=== PATIENT | female | born 1965 | race Caucasian/White ===

== ENCOUNTER 2016-04-10 12:33 | Emergency (ER) | payer OTHER ==
--- NOTE | 2016-04-10 12:49 | ED ---
Alcohol HPI - General Stated Complaint: ETOH Time Seen by Provider: 04/10/16 12:35 - History of Present Illness Initial Comments: Patient presents with acute alcohol intoxication. She denies any fever, chills , chest pain or shortness of breath. She has no belly or back pain. She has no nausea or vomiting. She has no constipation or diarrhea. She denies any injuries. She did not fall over. She did not hurt her head. She denies conscious. She has no neck pain or stiffness. She has no weakness or trouble walking. She has no loss of continence. She does admit to drinking today. - Related Data Home Medications Medication Instructions Recorded Confirmed ALPRAZolam [ALPRAZolam] 0.25 mg PO TID PRN 06/08/14 04/10/16 Escitalopram [Lexapro] 10 mg PO DAILY 06/08/14 04/10/16 Allergies Allergy/AdvReac Type Severity Reaction Status Date / Time No Known Allergies Allergy Verified 04/10/16 14:03 Review of Systems ROS Statement: Those systems with pertinent positive or pertinent negative responses have been documented in the HPI. ROS Other: All systems not noted in ROS Statement are negative. Past Medical History Past Medical History: No Reported History Additional Past Medical History / Comment(s): fell & fx. right ulna-arm currently in splint, hx. of head injury years ago, hx. of elevated liver enzymes History of Any Multi-Drug Resistant Organisms: None Reported Past Surgical History: Orthopedic Surgery, Tubal Ligation Additional Past Surgical History / Comment(s): tubes in ears, hand surg. Past Anesthesia/Blood Transfusion Reactions: No Reported Reaction Past Psychological History: Anxiety, Depression Smoking Status: Current every day smoker Past Alcohol Use History: Occasional Additional Past Alcohol Use History / Comment(s): used to drink every day Past Drug Use History: None Reported General Exam General appearance: alert, in no apparent distress Head exam: Present: atraumatic, normocephalic, normal inspection Eye exam: Present: normal appearance, PERRL, EOMI. Absent: scleral icterus, conjunctival injection, periorbital swelling ENT exam: Present: normal exam, mucous membranes moist Neck exam: Present: normal inspection. Absent: tenderness, meningismus, lymphadenopathy Respiratory exam: Present: normal lung sounds bilaterally. Absent: respiratory distress, wheezes, rales, rhonchi, stridor Cardiovascular Exam: Present: regular rate, normal rhythm, normal heart sounds. Absent: systolic murmur, diastolic murmur, rubs, gallop, clicks GI/Abdominal exam: Present: soft, normal bowel sounds. Absent: distended, tenderness, guarding, rebound, rigid Extremities exam: Present: normal inspection, full ROM, normal capillary refill. Absent: tenderness, pedal edema, joint swelling, calf tenderness Back exam: Present: normal inspection Neurological exam: Present: alert, oriented X3, CN II-XII intact Psychiatric exam: Present: normal affect, normal mood Skin exam: Present: warm, dry, intact, normal color. Absent: rash Course Vital Signs 04/10/16 13:12 Temperature 97.8 F Pulse Rate 87 Respiratory 18 Rate Blood Pressure 121/69 O2 Sat by Pulse 99 Oximetry Procedures - Restraint - Face to Face Restraint Occurrence 1 Patient's Immediate Situation: Endangers others' safety Patient's Reaction to the Intervention: Uncooperative Patient's Medical & Behavioral Condition: Awake, Alert Need to Continue or Terminate Restraint or Seclusion: Continue Face to Face Eval of Restraint Date: 04/10/16 Face to Face Eval of Restraint Time: 15:37 Medical Decision Making - Medical Decision Making Patient presented with acute alcohol intoxication. Her physical exam does not reveal any evidence of an injury. Imaging is not indicated. Patient attained clinical sobriety. She is stable for discharge home. Disposition Clinical Impression: Alcoholic intoxication Disposition: HOME SELF-CARE Condition: Good Instructions: Alcohol Intoxication (ED) Time of Disposition: 18:31
[2016-04-10] MEDS ORDERED: HALOPERIDOL LACTATE 5 MG/ML 1 ML VIAL IM PRN (13:01)
[2016-04-10] MEDS: LORazepam 2 MG/ML SYRINGE IM STA (13:09)
[2016-04-10] MEDS: LORazepam 2 MG/ML SYRINGE IV STA (13:10)
[2016-04-10 13:17] VITALS: TEMP 97.8
[2016-04-10] MEDS: SODIUM CHLORIDE 0.9% 500 ML IV STA (14:20)
[2016-04-10 18:59] VITALS: BP 137/91; PULSE 98; RESP 16
== END 2016-04-10 19:22 | disposition home or self-care (01) ==
LOC: EC 12:33
DX: F10.129 Alcohol abuse with intoxication, unspecified (principal); F41.9 Anxiety disorder, unspecified; F32.9 Major depressive disorder, single episode, unspecified; Z79.899 Other long term (current) drug therapy; F17.200 Nicotine dependence, unspecified, uncomplicated
CPT/HCPCS: 82075; 96372; 99284; J2060

== ENCOUNTER → 2016-12-17 | Outpatient (CLI) | payer OTHER ==
--- NOTE | 2016-12-17 15:50 | XR ---
EXAMINATION TYPE: XR shoulder complete RT DATE OF EXAM: 12/17/2016 COMPARISON: NONE HISTORY: Pain TECHNIQUE: Three views are submitted. FINDINGS: The osseous structures are intact. There is no acute fracture or dislocation. There is a deformity o f the distal clavicle. IMPRESSION: 1. No acute process. Correlate for previous trauma to the distal clavicle. MRI could BE obtained to assess for rotator cuff disease.
== END ==
LOC: RADXRMAIN 15:32
PROVIDERS: ATTEND Internal Medicine
DX: M25.511 Pain in right shoulder (principal)

== ENCOUNTER → 2018-07-15 | Outpatient (CLI) | payer OTHER ==
--- NOTE | 2018-07-15 11:58 | US ---
EXAMINATION TYPE: US abdomen complete DATE OF EXAM: 07/15/2018 COMPARISON: NONE CLINICAL HISTORY: 52-year-old female R10.84 generalized abdominal pain. TECHNIQUE: Multiple sonographic images of the abdomen are obtained. FINDINGS: EXAM MEASUREMENTS: Liver Length: 10.7 cm Gallbladder Wall: 0.2 cm CBD: 0.4 cm Spleen: 8.1 cm Right Kidney: 9.5 x 3.8 x 4.5cm Left Kidney: 9.0 x 4.1 x 3.9 cm Pancreas: 1.3 cm ovoid hypoechoic area seen at area of pancreatic head, possible pancreatic mass vs l ymph node anterior to pancreas Liver: wnl Gallbladder: wnl Evidence for sonographic Esteves's sign: no CBD: wnl Spleen: wnl Right Kidney: No hydronephrosis Left Kidney: No hydronephrosis Upper IVC: wnl Abd Aorta: wnl IMPRESSION: 1. A 1.3 cm ovoid hypoechoic area in the region of the pancreatic head, possible peripancreatic lymph node. Contrast-enhanced CT recommended to exclude a pancreatic head lesion. 2. Otherwise, no specific abnormality seen.
== END | disposition home or self-care (01) ==
LOC: RADUSWWP 07:49
PROVIDERS: ATTEND Internal Medicine
DX: R93.5 Abnormal findings on diagnostic imaging of other abdominal regions, including retroperitoneum (principal); R10.84 Generalized abdominal pain
CPT/HCPCS: 76700

== ENCOUNTER → 2018-09-24 | Outpatient (CLI) | payer OTHER ==
--- NOTE | 2018-09-26 18:40 | MR ---
EXAMINATION TYPE: MR pancreas wo/w con DATE OF EXAM: 09/24/2018 COMPARISON: None HISTORY: Abnormal US Abdomen CONTRAST: Standard multiplanar, multisequence MRI departmental protocol utilizing 5 mL intravenous Gadavist erin olinium contrast. FINDINGS: Pancreas has normal size and contour. Pancreatic duct is not dilated. There is tubular stru cture on the T2 images at the pancreatic head that could be an accessory pancreatic duct or accessory bile duct posterior to the distal common bile duct. There is no evidence of pancreatic mass. Pancrea s has normal signal pattern. Spleen is intact. Liver has normal size and contour. Gallbladder appears normal. There is no gallblad cathy wall thickening. Kidneys have normal size and contour. There is no hydronephrosis. There is no adrenal mass. There is no evidence of retroperitoneal adenopathy. There is no sign of pleural effusion. The contrast images show no pathologic enhancement. IMPRESSION: No evidence of pancreatic mass. Accessory duct seen at the pancreatic head of doubtful significance. No dilated ducts.
== END | disposition home or self-care (01) ==
LOC: RADMRIMAIN 15:12
PROVIDERS: ATTEND Internal Medicine
DX: R93.5 Abnormal findings on diagnostic imaging of other abdominal regions, including retroperitoneum (principal)
CPT/HCPCS: 74183; A9585

== ENCOUNTER → 2018-10-11 | Outpatient (CLI) | payer OTHER ==
--- NOTE | 2018-10-11 17:26 | XR ---
Lumbosacral spine HISTORY: Low back pain 5 views of lumbosacral spine There is a dextroscoliosis centered at L3. There is multilevel spondylosis present. Loss of disc heig ht present at the intervertebral levels. Sclerosis present in the posterior elements of the lower lum bar spine. Lumbar vertebral bodies show preserved height. Bone mineralization is reduced. IMPRESSION: No acute fracture or subluxation. Degenerative disc disease and facet arthropathy, osteop enia. Lumbar MRI or bone scan may be of benefit.
== END | disposition home or self-care (01) ==
LOC: RADXRMAIN 14:56
PROVIDERS: ATTEND Internal Medicine
DX: M51.36 Other intervertebral disc degeneration, lumbar region (principal); M46.96 Unspecified inflammatory spondylopathy, lumbar region; M85.88 Other specified disorders of bone density and structure, other site; W19.XXXA Unspecified fall, initial encounter; T14.90XA Injury, unspecified, initial encounter
CPT/HCPCS: 72110

== ENCOUNTER 2022-02-14 11:09 | Emergency (ER) | payer OTHER ==
[2022-02-14 11:16] VITALS: RESP 18; TEMP 99.5
[2022-02-14] MEDS ORDERED: IBUPROFEN 400 MG TAB PO STA (11:32)
[2022-02-14] MEDS ORDERED: ACETAMINOPHEN TAB 325 MG TAB PO STA (11:32)
--- NOTE | 2022-02-14 11:32 | ED ---
URI HPI - General Chief Complaint: Upper Respiratory Infection Stated Complaint: Cough,Congestion Time Seen by Provider: 02/14/22 11:25 Source: patient, RN notes reviewed, old records reviewed Mode of arrival: ambulatory Limitations: no limitations - History of Present Illness Initial Comments: This is a nontoxic-appearing 56-year-old female that presents to the emergency room with complaints of 3 days of cough, nasal congestion and sore throat. Denies any nausea vomiting or diarrhea. Patient states that she has not been vaccinated against coronavirus or influenza. She denies any sick contacts. She is a pack-a-day smoker. MD Complaint: fever, cough, sore throat, nasal congestion -: days(s) (3) - Related Data Home Medications Medication Instructions Recorded Confirmed ALPRAZolam 0.25 mg PO TID PRN 06/08/14 04/10/16 Escitalopram [Lexapro] 10 mg PO DAILY 06/08/14 04/10/16 Allergies Allergy/AdvReac Type Severity Reaction Status Date / Time No Known Allergies Allergy Verified 02/14/22 11:13 Review of Systems ROS Statement: Those systems with pertinent positive or pertinent negative responses have been documented in the HPI. ROS Other: All systems not noted in ROS Statement are negative. Past Medical History Past Medical History: No Reported History Additional Past Medical History / Comment(s): fell & fx. right ulna-arm currently in splint, hx. of head injury years ago, hx. of elevated liver enzymes History of Any Multi-Drug Resistant Organisms: None Reported Past Surgical History: Orthopedic Surgery, Tubal Ligation Additional Past Surgical History / Comment(s): tubes in ears, hand surg. Past Anesthesia/Blood Transfusion Reactions: No Reported Reaction Past Psychological History: Anxiety, Depression Smoking Status: Current every day smoker Past Alcohol Use History: Occasional Past Drug Use History: None Reported General Exam Limitations: no limitations General appearance: alert, in no apparent distress Head exam: Present: atraumatic Eye exam: Present: normal appearance. Absent: scleral icterus, conjunctival injection, periorbital swelling ENT exam: Present: mucous membranes moist Expanded Mouth exam: Present: tongue normal, tongue elevation. Absent: drooling, trismus, muffled voice Throat exam: negative: tonsillar erythema, tonsillar exudate Neck exam: Absent: tenderness, meningismus, lymphadenopathy Respiratory exam: Present: normal lung sounds bilaterally. Absent: respiratory distress, accessory muscle use Cardiovascular Exam: Present: tachycardia GI/Abdominal exam: Present: soft Neurological exam: Present: alert, oriented X3, normal gait Psychiatric exam: Present: normal affect, normal mood Skin exam: Present: warm, dry. Absent: cyanosis, diaphoretic Course Vital Signs 02/14/22 02/14/22 11:13 13:01 Temperature 99.5 F Pulse Rate 104 H 92 Respiratory 18 18 Rate Blood Pressure 121/72 122/77 O2 Sat by Pulse 94 L 94 L Oximetry Medical Decision Making - Medical Decision Making Patient presents with cough and congestion for 3 days. Chest x-ray interpreted by me shows no areas of consolidation, heart normal size. Radiologist interpretation no acute cardiopulmonary disease or process. Old right-sided rib fractures noted. Influenza, coronavirus virus swabs are negative. Patient is a pack-a-day smoker. Patient's symptoms may be an upper respiratory infection versus COPD. She was directed to decrease her smoking and followup with her primary care doctor next week. Return to the emergency room with any new or concerning symptoms. Case discussed with Dr. Son - Lab Data Lab Results 02/14/22 02/14/22 Range/Units 11:41 11:41 Coronavirus (PCR) Not Detected (Not Detectd) Influenza Type A RNA Not Detected (Not Detectd) Influenza Type B (PCR) Not Detected (Not Detectd) Disposition Clinical Impression: URI (upper respiratory infection) Disposition: HOME SELF-CARE Condition: Good Instructions (If sedation given, give patient instructions): Upper Respiratory Infection (ED) Additional Instructions: Increase your fluid intake. Tylenol and/or Motrin as needed for any discomfort. Try to quit smoking or at least decrease how much you smoke. Follow-up with your primary care doctor next week. Return to the emergency room with any new or concerning symptoms. Is patient prescribed a controlled substance at d/c from ED?: No Referrals: Bal Saenz MD [Primary Care Provider] - 1-2 days Time of Disposition: 12:38
--- NOTE | 2022-02-14 11:57 | XR ---
EXAMINATION TYPE: XR chest 2V DATE OF EXAM: 02/14/2022 11:52 AM COMPARISON: Chest radiographs from 07/14/2012 TECHNIQUE: XR chest 2V Frontal and lateral views of the chest. CLINICAL INDICATION:Female, 56 years old with history of cough fever; FINDINGS: Lungs/Pleura: There is no evidence of pleural effusion, focal consolidation, or pneumothorax. Pulmonary vascularity: Unremarkable. Heart/mediastinum: Cardiomediastinal silhouette is unremarkable. Musculoskeletal: No acute osseous pathology. Old right rib fractures. IMPRESSION: No acute cardiopulmonary disease/process.
[2022-02-14 13:02] VITALS: BP 122/77; PULSE 92
== END 2022-02-14 13:50 | disposition home or self-care (01) ==
LOC: EC 11:09
DX: J06.9 Acute upper respiratory infection, unspecified (principal); F32.A Depression, unspecified; F41.9 Anxiety disorder, unspecified; F17.200 Nicotine dependence, unspecified, uncomplicated; Z20.822 Contact with and (suspected) exposure to COVID-19
CPT/HCPCS: 71046; 87502; 87635; 99284

== ENCOUNTER → 2023-07-23 | Outpatient (CLI) | payer OTHER ==
--- NOTE | 2023-07-23 12:43 | XR ---
EXAM TYPE: LUMBAR SPINE X RAY SERIES COMPARISON: NONE HISTORY: Pain TECHNIQUE: 4 views are submitted. FINDINGS: Alignment is anatomic. The pedicles are intact. The transverse processes are intact. There is diff use osteopenia. SI joints mild superior endplate compression fracture T12 age. Mild multilevel degene rative disc disease and facet arthropathy L5 interspinous arthropathy L3-L4. Vascular calcifications. Generalized demineralization. IMPRESSION: 1. Mild superior endplate compression fracture T12 A Yellow level critical message alert has been initiated for Bal Saenz MD via the [employer] Critical Results System on 07/23/2023 12:41 PM. This message alert has been sent to Bal Saenz MD via the preferences provided by the clinician for the receipt of Radiology Critical Findings. Message ID [id number].
--- NOTE | 2023-07-23 12:45 | XR ---
EXAMINATION TYPE: XR thoracic spine 2V DATE OF EXAM: 07/23/2023 COMPARISON: NONE HISTORY: Pain TECHNIQUE: 3 views submitted FINDINGS: Alignment is anatomic. There is a mild superior endplate compression fracture T12. Cannot exclude a mild superior end plate compression fracture T3. Correlate point tenderness. Mild multilevel degenera tive disc disease. Diffuse osteopenia. IMPRESSION: 1. Mild superior end plate compression fracture T12.
--- NOTE | 2023-07-23 12:47 | XR ---
EXAMINATION TYPE: XR pelvis AP view DATE OF EXAM: 07/23/2023 COMPARISON: NONE HISTORY: Pain The osseous structures are intact and the joint spaces are preserved. No acute fracture is seen. Vi sualized bowel gas pattern is nonspecific. There is a bony exostosis of the proximal diaphysis left femur. Degenerative change lower lumbar spine. SI joints are patent. IMPRESSION: 1. No acute fracture. 2. Small exostosis of the medial cortex proximal diaphysis left femur partially included in the field -of-view. Correlate for history of remote trauma. Otherwise consider exostosis/osteochondroma.
== END | disposition home or self-care (01) ==
LOC: RADXRMAIN 12:10
PROVIDERS: ATTEND Internal Medicine
DX: M48.54XA Collapsed vertebra, not elsewhere classified, thoracic region, initial encounter for fracture (principal); D16.22 Benign neoplasm of long bones of left lower limb; T14.90XA Injury, unspecified, initial encounter; M54.50 Low back pain, unspecified; W19.XXXA Unspecified fall, initial encounter
CPT/HCPCS: 72070; 72110; 72170

== ENCOUNTER → 2024-02-09 | Outpatient (CLI) | payer OTHER ==
--- NOTE | 2024-02-09 11:09 | US ---
EXAMINATION TYPE: US kidneys/renal and bladder DATE OF EXAM: 02/09/2024 COMPARISON: NONE CLINICAL INDICATION: Female, 58 years old with history of M54.50 LOW BACK PAIN; left lower back pain TECHNIQUE: Grayscale imaging of the bilateral kidneys and urinary bladder: FINDINGS: EXAM MEASUREMENTS: Right Kidney: 9.1 x 3.9 x 4.3 cm Left Kidney: 9.0 x 4.9 x 4.4 cm Right Kidney: no evidence of hydronephrosis Left Kidney: no evidence of hydronephrosis Bladder: appears wnl Bilateral Jets seen: no There is no evidence for hydronephrosis at this point in time. No nephrolithiasis is seen. No graeme s are identified. The urinary bladder is anechoic. IMPRESSION: No evidence for obstructive uropathy or renal calculus. [facility], , 02/09/2024 11:07 AM
== END | disposition home or self-care (01) ==
LOC: RADUSWWP 09:23
PROVIDERS: ATTEND Internal Medicine
DX: M54.50 Low back pain, unspecified (principal)
CPT/HCPCS: 76770

== ENCOUNTER 2024-09-26 13:32 | Emergency (ER) | payer OTHER ==
--- NOTE | 2024-09-26 14:22 | XR ---
EXAMINATION TYPE: XR knee limited LT DATE OF EXAM: 09/26/2024 2:14 PM INDICATION: Patient age:Female; 58 years old; Reason for study: fall pain with weight bearing; PHH. pain COMPARISON: Left knee radiograph 12/21/2014 TECHNIQUE: The Left knee(s) was examined in Frontal and lateral projections. FINDINGS: No evidence of any acute osseous pathology, soft tissue swelling, or joint effusion is no jose. IMPRESSION: No acute osseous pathology. [facility], , 09/26/2024 2:20 PM
--- NOTE | 2024-09-26 14:37 | ED ---
General Adult HPI - General Chief complaint: Extremity Injury, Lower Stated complaint: Fall-L leg injury Time Seen by Provider: 09/26/24 13:59 Source: patient, family, RN notes reviewed Mode of arrival: wheelchair Limitations: no limitations - History of Present Illness Initial comments: 58-year-old female presenting to emergency room with complaints of left knee pain after a fall that occurred 3 to 4 days ago. Patient states that she [place] [address] [place] apartment [place]. Patient denies hitting her head or loss conscious at the time of the fall. Patient states that she has been able to ambulate however this causes mild pain. She denies other injuries at the time of the fall. No other acute complaints at this time. - Related Data Home Medications Medication Instructions Recorded Confirmed ALPRAZolam 0.25 mg PO TID PRN 06/08/14 04/10/16 Escitalopram [Lexapro] 10 mg PO DAILY 06/08/14 04/10/16 Previous Rx's Medication Instructions Recorded Acetaminophen [Acetaminophen 8 hr] 650 mg PO Q8H #21 tab 09/26/24 Allergies Allergy/AdvReac Type Severity Reaction Status Date / Time No Known Allergies Allergy Verified 02/14/22 11:13 Review of Systems ROS Statement: Those systems with pertinent positive or pertinent negative responses have been documented in the HPI. ROS Other: All systems not noted in ROS Statement are negative. Past Medical History Past Medical History: No Reported History Additional Past Medical History / Comment(s): fell & fx. right ulna-arm currently in splint, hx. of head injury years ago, hx. of elevated liver enzymes History of Any Multi-Drug Resistant Organisms: None Reported Past Surgical History: Orthopedic Surgery, Tubal Ligation Additional Past Surgical History / Comment(s): tubes in ears, hand surg. Past Anesthesia/Blood Transfusion Reactions: No Reported Reaction Past Psychological History: Anxiety, Depression Smoking Status: Current every day smoker Past Alcohol Use History: Occasional Past Drug Use History: None Reported General Exam Limitations: no limitations Neck exam: Present: normal inspection. Absent: tenderness, meningismus, lymphadenopathy Respiratory exam: Present: normal lung sounds bilaterally. Absent: respiratory distress, wheezes, rales, rhonchi, stridor Cardiovascular Exam: Present: regular rate, normal rhythm, normal heart sounds. Absent: systolic murmur, diastolic murmur, rubs, gallop, clicks GI/Abdominal exam: Present: soft, normal bowel sounds. Absent: distended, tenderness, guarding, rebound, rigid Left Knee exam: Present: full ROM, tenderness, abrasion. Absent: swelling, deformity, crepitus, dislocation Gait: observed and normal Back exam: Present: normal inspection Course Vital Signs 09/26/24 09/26/24 13:35 15:31 Temperature 97.7 F 98.2 F Pulse Rate 100 84 Respiratory 20 16 Rate Blood Pressure 190/87 174/84 O2 Sat by Pulse 99 97 Oximetry Medical Decision Making - Medical Decision Making Was pt. sent in by a medical professional or institution (, PA, RETAIL PLANNING MANAGER, urgent care, hospital, or penitentiary...) When possible be specific @ -No Did you speak to anyone other than the patient for history (EMS, parent, family, police, friend...)? What history was obtained from this source @ -No Did you review nursing and triage notes (agree or disagree)? Why? @ -I reviewed and agree with nursing and triage notes Were old charts reviewed (outside hosp., previous admission, EMS record, old EKG, old radiological studies, urgent care reports/EKG's, penitentiary records)? Report findings @ -No old charts were reviewed Differential Diagnosis (chest pain, altered mental status, abdominal pain women, abdominal pain men, vaginal bleeding, weakness, fever, dyspnea, syncope, headache, dizziness, GI bleed, back pain, seizure, CVA, palpatations, mental health, musculoskeletal)? @ -Differential Musculoskeletal Muscular strain, contusion, ligament sprain, fracture, arthritis, septic arthritis, bursitis, cellulitis, muscle spasm, nerve compression, DVT, arterial occlusion, herpes zoster, electrolyte abnormality, tumor.... This is not meant to be in all inclusive list EKG interpreted by me (3pts min.). @ -none X-rays interpreted by me (1pt min.). @ -X-ray imaging of the left knee reveals no acute osseous pathology. CT interpreted by me (1pt min.). @ -None done U/S interpreted by me (1pt. min.). @ -None done What testing was considered but not performed or refused? (CT, X-rays, U/S, labs)? Why? @ -None What meds were considered but not given or refused? Why? @ -None Did you discuss the management of the patient with other professionals (professionals i.e. DrSusan, PA, RETAIL PLANNING MANAGER, lab, RT, psych nurse, social worker delinquency prevention, corporation lawyer, teacher, navy senior officer, case making machine operator)? Give summary @ -No Was smoking cessation discussed for >3mins.? @ -No Was critical care preformed (if so, how long)? @ -No Were there social determinants of health that impacted care today? How? (Homelessness, low income, unemployed, alcoholism, drug addiction, transportation, low edu. Level, literacy, decrease access to med. care, fci, rehab)? @ -No Was there de-escalation of care discussed even if they declined (Discuss DNR or withdrawal of care, Hospice)? DNR status @ -No What co-morbidities impacted this encounter? (DM, HTN, Smoking, COPD, CAD, Cancer, CVA, ARF, Chemo, Hep., AIDS, mental health diagnosis, sleep apnea, morbid obesity)? @ -None Was patient admitted / discharged? Hospital course, mention meds given and route, prescriptions, significant lab abnormalities, going to OR and other pertinent info. @ -Discharge. 58-year female presenting for complaints of left knee pain. They noted abrasions over the left knee. Full range of motion intact. X-ray imaging is unremarkable. Patient provided with dose of Motrin. She is placed in an Gray wrap and instructed continue supportive treatment for diagnosis of knee contusion. Case discussed with my attending Dr. Chung Undiagnosed new problem with uncertain prognosis? @ -No Drug Therapy requiring intensive monitoring for toxicity (Heparin, Nitro, Insulin, Cardizem)? @ -No Were any procedures done? @ -No Diagnosis/symptom? @ -knee contusion, knee abrasion Acute, or Chronic, or Acute on Chronic? @ -acute Uncomplicated (without systemic symptoms) or Complicated (systemic symptoms)? @ -uncomplicated Side effects of treatment? @ -No Exacerbation, Progression, or Severe Exacerbation? @ -No Poses a threat to life or bodily function? How? (Chest pain, [place], [place], pneumonia, PE, COPD, DKA, ARF, appy, cholecystitis, CVA, Diverticulitis, Homicidal, Suicidal, threat to staff... and all critical care pts) @ -No Disposition Clinical Impression: Contusion of knee Disposition: HOME SELF-CARE Condition: Good Instructions (If sedation given, give patient instructions): Knee Pain (ED) Additional Instructions: Please return to the Emergency Department if symptoms worsen or any other concerns. Prescriptions: Acetaminophen [Acetaminophen 8 hr] 650 mg PO Q8H #21 tab Is patient prescribed a controlled substance at d/c from ED?: No Referrals: Bal Saenz MD [Primary Care Provider] - 1-2 days Time of Disposition: 14:53
[2024-09-26] MEDS: ACETAMINOPHEN TAB 325 MG TAB PO STA (15:30)
[2024-09-26 15:36] VITALS: BP 174/84; PULSE 84; RESP 16; TEMP 98.2
== END 2024-09-26 15:53 | disposition home or self-care (01) ==
LOC: EC 13:32
DX: S80.01XA Contusion of right knee, initial encounter (principal); F17.200 Nicotine dependence, unspecified, uncomplicated; W18.30XA Fall on same level, unspecified, initial encounter
CPT/HCPCS: 99283